=== PATIENT | female | born 1990 | race Caucasian/White ===

== ENCOUNTER → 2017-06-27 | Day surgery (SDC) | payer OTHER ==
--- NOTE | 2017-06-26 11:32 | TH ---
cc: ABDIFATAH HORN MD DATE REASON FOR ADMISSION This patient is 27-year-old white female. 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 At that time she reports a history of a Pap smear approximately a year ago which showed an ASCUS change but could not rule out a high-grade lesion. Colposcopic-directed biopsies which were done in [place] showed benign changes of the cervix. However, when we repeated the Pap smear, the Pap smear came back as high-grade squamous intraepithelial lesion of the cervix. Because of the previous biopsies not corresponding to the Pap smear, we are now going to proceed with loop electrical excision procedure of the cervix. SOCIAL HISTORY She is a nonsmoker. PAST SURGICAL HISTORY Orthopedic procedure on her left ankle. FAMILY HISTORY significant that her mother, father and sister all have diabetes and her mother and father have hypertension. MEDICAL HISTORY Medical history is essentially noncontributory. ALLERGIES She has no known allergies to medication. REVIEW OF SYSTEMS Essentially noncontributory. PHYSICAL EXAMINATION GENERAL: The patient is seen, well-developed, well-nourished in no acute distress. VITAL SIGNS: Blood pressure was performed 116/80, pulse of 70, respirations of 12. HEENT: Negative. CHEST: Clear to auscultation. CARDIOVASCULAR: Regular rate. ABDOMEN: Soft. Bowel sounds were positive. PELVIC EXAMINATION: Normal external genitalia. Uterus is normal in size. There is no adnexal mass palpable. EXTREMITIES: No cyanosis, clubbing or edema. NEUROPSYCHIATRIC: The patient is oriented x3 and showed no gross neurocranial deficit. Present on admission was a high-grade squamous intraepithelial lesion of the cervix on Pap smear. Colposcopic-directed biopsies were negative. PLAN Proceed with loop electrical excision procedure. Abdifatah Horn MD JSG/SSB /10:35 AM /11:13 AM
[~2017-06-27] MED LIST: KETOROLAC TROMETHAMINE 30 MG/ML (IVP) VIAL IV PUSH ONE; LACTATED RINGER'S 1000 ML INJ 1,000 ML ONE; MIDAZOLAM HCL 2 MG/2 ML VIAL ONE; ONDANSETRON HCL 4 MG/2 ML VIAL IV PUSH ONE; ONDANSETRON HCL 4 MG/2 ML VIAL IV PUSH PRN; PROPOFOL 200 MG/20 ML AMP IV ONE; ceFAZolin 2 GM PREMIX 50 ML ONE
--- NOTE | 2017-06-27 09:20 | MP ---
cc: ABDIFATAH HORN MD DATE OF SURGERY: 06/27/2017 PREOPERATIVE DIAGNOSIS High-grade squamous intraepithelial lesion of the cervix. POSTOPERATIVE DIAGNOSIS High-grade squamous intraepithelial lesion of the cervix. OPERATION Loop electrical excision procedure. SURGEON Kory. ANESTHESIA General. ESTIMATED BLOOD LOSS Minimal. FINDINGS None. COMPLICATIONS None. PROCEDURE The patient was prepped and draped in the dorsal lithotomy position. A weighted speculum was placed in the posterior vaginal vault. The anterior lip of the cervix was grasped with a single-tooth tenaculum. Using a large size wire loop the transformation zone was excised, and then using a smaller size wire loop a portion of the endocervical canal was excised. The ball electrode was then used for hemostasis and after good hemostasis was noted the tenaculums and speculum were removed. The patient returned to the recovery room in stable condition. Abdifatah Horn MD JSG/BT /9:04 AM /9:21 AM
== END | disposition home or self-care (01) ==
LOC: ESDC 06:31
PROVIDERS: ATTEND Obstetrics & Gynecology
DX: D06.9 Carcinoma in situ of cervix, unspecified (principal)
CPT/HCPCS: 00940; 57522; 88307; J0690; J1885; J2250; J2405; J3010; J7120; 88305